=== PATIENT | male | born 1990 | race African-American/Black ===

== ENCOUNTER 2016-03-15 17:07 | Emergency (ER) | payer SELFPAY ==
[2016-03-15] MEDS ORDERED: IBUPROFEN 800 MG TABLET PO ONE (17:13)
--- NOTE | 2016-03-15 17:13 | ER Document Report ---
ED Medical Screen (RME) - General Stated Complaint: FACIAL SWELLING Time seen by provider: 17:12 Mode of Arrival: Ambulatory Information source: Patient Notes: 25-year-old male presents to ED for swelling to the left side of his jaw that started 3 days ago. He states he had similar swelling once before but he states he did not see anybody for this swelling the first time states he does have some bad teeth but he doesn't think this is what causing the jaw swelling. States he has pain with opening and closing his mouth to lay on his side of his face. I have greeted and performed a rapid initial assessment of this patient. A comprehensive ED assessment and evaluation of the patient, analysis of test results and completion of medical decision making process will be conducted by an additional ED providers.
[2016-03-15 17:30] VITALS: BP 130/80
--- NOTE | 2016-03-15 18:13 | ER Document Report ---
ED Oral Problem - General Chief Complaint: Jaw Pain Stated Complaint: FACIAL SWELLING Mode of Arrival: Ambulatory Information source: Patient Notes: 25-year-old male presents to the emergency department complaining of left lower posterior dental pain progressively worsening over the last 3 days. States has chipped and decayed tooth and intermittently causes him pain however states over the last 2 days pain has become persistent and has noted associated localized swelling. Denies fever, drainage, difficulty breathing or swallowing. States has not been evaluated or treated by dental provider. - HPI Patient complains to provider of: Toothache Onset: Gradual Quality of pain: Achy Severity: Moderate Pain Level: 3 Swollen jaw/face: Mild Associated symptoms: Dental decay, Jaw pain, Toothache Similar symptoms previously: Yes Recently seen / treated by doctor/dentist: No - Related Data Allergies/Adverse Reactions: No Known Allergies Allergy (Verified 03/15/16 17:14) Past Medical History - General Information source: Patient - Social History Smoking Status: Current Every Day Smoker Chew tobacco use (# tins/day): Yes Frequency of alcohol use: Social Drug Abuse: None Lives with: Family Family History: Reviewed & Not Pertinent Patient has suicidal ideation: No Patient has homicidal ideation: No - Medical History Medical History: Negative Renal/ Medical History: Denies: Hx Peritoneal Dialysis Surgical Hx: Negative - Immunizations Hx Diphtheria, Pertussis, Tetanus Vaccination: Yes Review of Systems - Review of Systems Constitutional: No symptoms reported EENT: See HPI Cardiovascular: No symptoms reported Respiratory: No symptoms reported Gastrointestinal: No symptoms reported Genitourinary: No symptoms reported Male Genitourinary: No symptoms reported Musculoskeletal: No symptoms reported Skin: No symptoms reported Hematologic/Lymphatic: No symptoms reported Neurological/Psychological: No symptoms reported -: Yes All other systems reviewed and negative Physical Exam - Vital signs Vitals: Temp Pulse Resp BP Pulse Ox 97.9 F 71 16 130/80 H 100 03/15/16 17:11 03/15/16 17:11 03/15/16 17:11 03/15/16 17:11 03/15/16 17:11 Interpretation: Normal - General General appearance: Appears well, Alert In distress: None - HEENT Head: Normocephalic, Atraumatic Eyes: Normal Conjunctiva: Normal Eyelashes: Normal Pupils: PERRL Ears: Normal External canal: Normal Tympanic membrane: Normal Sinus: Normal Nasal: Normal Mouth/Lips: Normal Mucous membranes: Normal, Moist Teeth diagram: 1 - Moderate dental decay, tenderness with palpation. Mild localized swelling without fluctuance or drainage. Pharynx: Normal. No: Blood in hypopharynx, Erythema, Exudate, Peritonsillar abscess, Post nasal drainage, Retropharyngeal abscess, Tonsillar hypertrophy, Uvular edema, Potential airway comprom., Other Neck: Normal. No: Posterior cervical chain, Lymphadenopathy, Meningismus, Subcutaneous emphysema - Respiratory Respiratory status: No respiratory distress Chest status: Nontender Breath sounds: Normal Chest palpation: Normal - Cardiovascular Rhythm: Regular Heart sounds: Normal auscultation Murmur: No Normal capillary refill: Yes - Extremities General upper extremity: Normal inspection, Normal color, Normal ROM General lower extremity: Normal inspection, Normal color, Normal ROM, Normal weight bearing - Skin Skin Temperature: Warm Skin Moisture: Dry Skin Color: Normal Course - Re-evaluation Re-evalutation: 03/15/16 18:11 Patient hemodynamically stable, in no distress, afebrile. No trismus, abscess, Julio Cesar angina, or suggestion of significant or emergent deep space or soft tissue infection requiring inpatient intervention or treatment at this time. Patient appears so for discharge and agrees with home care, follow-up, ED return precautions. - Vital Signs Vital signs: Temp Pulse Resp BP Pulse Ox 97.9 F 71 16 130/80 H 100 03/15/16 17:11 03/15/16 17:11 03/15/16 17:11 03/15/16 17:11 03/15/16 17:11 Discharge - Discharge Clinical Impression: Pain, dental Condition: Stable Disposition: HOME, SELF-CARE Additional Instructions: TOOTHACHE: Your pain is due to dental decay. The tooth must be repaired in order for you to feel better. You will, therefore, be referred to a dentist. We do not have dentists on the staff at [facility]. Severe swelling or drainage around a tooth usually means a dental abscess. This also requires evaluation and treatment by the dentist, but antibiotics may be prescribed while awaiting dental treatment. You should be rechecked immediately if you develop major swelling of the face, increasing pain, a lump in the jaw or gums, headache, difficulty swallowing, or fever. Dental Infection You have an infection of the gum around one of your teeth, which is probably decayed. If there is an abscess, it may drain on its own or it may need to be opened or lanced. Severe swelling or drainage around a tooth usually means a deep dental abscess which usually requires evaluation and treatment by a dentist or oral surgeon. Antibiotics may be prescribed while awaiting dental treatment. If you develop high fever with chills, worsening pain, or increasing swelling in the area, see a dentist or oral surgeon immediately or return to the Emergency Department immediately. CLINDAMYCIN: You have been given a prescription for the antibiotic clindamycin. It is often prescribed for infections in the mouth, such as dental infections or abscesses, and for skin infections due to MRSA. It's important that you take all the medication, unless instructed otherwise by your physician. Failure to complete the entire course can result in relapse of your condition. Common side effects of antibiotics include nausea, intestinal cramping, or diarrhea. Women may develop vaginal yeast infections, and babies can get yeast (thrush) in the mouth following the use of antibiotics. Contact your physician if you develop significant side effects from this medication. Allergy to this antibiotic can result in hives, wheezing, faintness, or itching. If symptoms of allergy occur, stop the medication and call the doctor. Ultram Ultram is an excellent drug for pain relief. It is not a narcotic, but it works in a similar way. Ultram can take up to two hours for full effect. Although not addicting, Ultram is best avoided in patients with a history of drug abuse. Ultram should not be used with alcohol, sleeping pills, or narcotics. If you're prone to seizures, Ultram can make you more likely to have a seizure. Ultram can be hazardous when combined with MAO-inhibitor antidepressants (such as Nardil or Parnate). Be sure your doctor is aware of all medicines you are taking. Persons with severe liver or kidney disease should increase the time between doses of Ultram. Discuss this with your doctor if you're uncertain. Side effects of Ultram can include dizziness, nausea, constipation, sleepiness, and itching. (These side effects are also seen with narcotic pain medicines.) Please call your doctor if you have other disturbing effects. Use of Fbns-Qdu-Fthznot Ibuprofen Ibuprofen (Advil, Nuprin, Medipren, Motrin IB) is an excellent, safe drug for fever and pain control. In addition, it has anti- inflammatory effects which may be beneficial, especially in the treatment of injuries. It's best to take ibuprofen with food. Persons with ulcer disease or allergy to aspirin should notify their physician of this before taking ibuprofen. Ibuprofen can be given every four to six hours, for a total of four doses daily. Age Pain or fever dose Antiinflammatory dose 6-8 yr 200 mg (1 tab) 200 mg (1 tab) 9-11 yr 200 mg (1 tab) 200-400 mg (1-2 tab) 11-14 yr 200-400 mg (1-2 tab) 400 mg (2 tab) 15-adult 400 mg (2 tab) 600 mg (3 tab) FOLLOW-UP CARE: You have been referred for follow-up care to the dentists listed below. Call the dentists office for an appointment as you were instructed or within the next two days. If you experience worsening or a significant change in your symptoms, notify the physician immediately or return to the Emergency Department at any time for re-evaluation. [facility] [address] [place], [place] Saturday mornings, by appointment [facility] [address] [place] [address] [facility] [address] [facility] [address] [facility] (4[facility]) [facility] [address] [email or web address] [address] [place] [address] Saturday- 8:00am to 5:00 pm Will see patients from other [facility] Charges based on income and family size and accepts Medicare, Medicaid, and Insurances Will pull molars [facility].. [id number] Hours of Operation 8:00 am - 4:30 pm weekdays The following dental offices accept Medicaid: [facility] Dr. Us Dr. Rea Dr. Pérez Dr. Gonzalez Chalo [place], [place], and Oscar oral surgery Dr. Ortiz ([place]) Dr. Ely ([place]) [facility] Drs. Dash and Rafy ([place]) Dr. Avery ([place]) [facility] Dr. Liu ([place]) Drs. Mcleod and ([place]) Medicaid Care Line Prescriptions: Tramadol HCl [Ultram] 50 mg PO Q8HP PRN #10 tablet PRN Reason: Clindamycin HCl 300 mg PO Q6H #28 capsule Forms: Elevated Blood Pressure
== END 2016-03-15 18:24 | disposition home or self-care (01) ==
LOC: ER 17:07
DX: K08.9 Disorder of teeth and supporting structures, unspecified (principal); R68.84 Jaw pain; F17.210 Nicotine dependence, cigarettes, uncomplicated
CPT/HCPCS: 99283

== ENCOUNTER 2019-10-16 23:41 | Emergency (ER) | payer SELFPAY ==
[2019-10-16 23:54] VITALS: BP 135/87
== END 2019-10-17 03:53 | disposition left against medical advice (07) ==
LOC: ER 23:41
DX: Z53.21 Procedure and treatment not carried out due to patient leaving prior to being seen by health care provider (principal)